=== PATIENT | female | born 1995 ===

== ENCOUNTER 2021-03-16 20:25 | Emergency (ER) | payer SELFPAY ==
[~2021-03-16 20:25] MED LIST: Iopamidol-370 76% 500 ML 1 ML ONE
[2021-03-16] MEDS ORDERED: Acetaminophen 500 MG TAB ONE (21:05)
[2021-03-16] MEDS ORDERED: Metoclopramide HCl 10 MG/2 ML VIAL ONE (21:05)
[2021-03-16] MEDS ORDERED: diphenhydrAMINE 50 MG/ML VIAL ONE (21:05)
[2021-03-16 21:32] LABS: BHCG - Serum Negative (NEGATIVE); Pregs Control Background? CLEAR/WHITE (CLR/WHITE); Pregs Control Bar Appear? YES (CONTROL BAR)
[2021-03-16 21:33] LABS: #Basophils 0.1 thou/uL (0.0-0.2); #Eosinphils 0.6 thou/uL (0.0-0.7); #Lymphocytes 3.1 thou/uL (1.20-3.40); #Monocytes 0.9 thou/uL (0.11-0.59); #Neutrophils 6.3 thou/uL (1.40-6.50); %Basophils 0.7 % (0.0-1.0); %Eosinophils 5.7 % (0.0-10.0); %Lymphocytes 28.4 % (21.0-51.0); %Monocytes 8.1 % (0.0-10.0); Mean Corpuscular HGB CONC 32.1 g/dL (32.0-36.0); Mean Corpuscular Hemoglobin 28.9 pg (27.0-31.0); Mean Corpuscular Volume 89.9 fL (78.0-98.0); Mean Platelet Volume 7.9 fL (7.4-10.4); Platelet Count 311 thou/uL (130-400); Red Blood Cell (RBC) Count 4.84 mill/uL (4.20-5.40)
[2021-03-16 21:56] LABS: ALT (SGPT) 12 U/L (8-55); AST (SGOT) 21 U/L (5-34); Albumin 3.8 g/dL (3.5-5.0); Alkaline Phosphatase 69 U/L (40-110); Anion Gap 12 mmol/L (10-20); BUN (Urea Nitrogen) 11 mg/dL (7.0-18.7); Bilirubin, Total 0.4 mg/dL (0.2-1.2); Calc. Creatinine Clearance 0 mL/min (70-130); Calcium 8.9 mg/dL (7.8-10.44); Carbon Dioxide 25 mmol/L (22-29); Chloride 106 mmol/L (98-107); Globulin 3.4 g/dL (2.4-3.5); Glucose 94 mg/dL (70-105); Potassium 3.8 mmol/L (3.5-5.1); Protein, Total 7.2 g/dL (6.0-8.3); Sodium 139 mmol/L (136-145)
[2021-03-17] MEDS ORDERED: Diazepam 10 MG/2 ML SYRINGE ONE (00:16)
== END 2021-03-17 02:20 | disposition home or self-care (01) ==
LOC: ERS 20:25
DX: G44.209 Tension-type headache, unspecified, not intractable (principal)
CPT/HCPCS: 70450; 70496; 70498; 80053; 84703; 85025; 96365; 96375; J1200; J2765; J3360; Q9967